=== PATIENT | female | born 1995 | race Caucasian/White ===

== ENCOUNTER 2021-01-25 16:20 | Emergency (ER) | payer OTHER, SELFPAY ==
--- NOTE | 2021-01-25 16:22 | ED.EAR ---
HPI - Ear Problem General Chief complaint: Ear Stated complaint: Ears Time Seen by Provider: 01/25/21 16:29 Source: patient and RN notes reviewed History of Present Illness HPI Narrative: Patient is a 25-year-old female who presents the urgent care with complaints of left earache. Patient states it started 2 days ago and she had been swimming on Saturday. Denies of any drainage, fever, nausea, vomiting, other upper respiratory symptoms. States that she takes a daily allergy medication and used Flonase and ibuprofen. No other acute complaints. No acute distress noted. Patient aware of the plan of care. Some parts of this dictation were generated by voice recognition software and may contain typographical and/or grammatical inaccuracies. Related Data Allergies Allergy/AdvReac Type Severity Reaction Status Date / Time No Known Allergies Allergy Verified 01/25/21 16:35 Review of Systems Review of Systems: Narrative: CONSTITUTIONAL: Denies fever, chills, or sweats. EYES: Denies visual changes, redness, or discharge. ENT: Denies rhinorrhea, congestion, sore throat. Reports of left otalgia CARDIOVASCULAR: Denies chest pain, palpitations, or edema. RESPIRATORY: Denies cough or dyspnea. GASTROINTESTINAL: Denies abdominal pain, nausea, vomiting, or diarrhea. GENITOURINARY: Denies dysuria or hematuria. SKIN: Denies rash or itching. MUSCULOSKELETAL: Denies back pain, joint pain, or myalgia. NEUROLOGIC: Denies headache, numbness, or weakness. All other systems reviewed are negative, except as documented in HPI. [facility] Family History Family History (Updated 03/18/14 @ 07:13 by DOCTOR UNKNOWN) Father Family history of elevated blood lipids Grandparent Family history of lymphoma Family history of heart disease in male family member before age 55 Social History Social History Smoking status: Never smoker Alcohol intake: never Comments At the time of my signature, I reviewed and agree with the nursing past medical, surgical, social, and family history. There is no relevant family history pertinent to the patient complaint. Exam Narrative: Exam Narrative: GENERAL: This is a well-nourished, well-developed patient, in no apparent distress. HEAD: normocephalic, atraumatic. Morbidly obese EYES: PERRL. Sclera clear/white. Vision is grossly intact. EARS: External ears normal, auditory canals clear and without drainage, mild fluid noted behind left TM without otitis, TMs normal without perforation. Hearing grossly intact. NOSE: External nose normal with no obvious nasal discharge, nares without redness, no rhinorrhea. THROAT: Mucous membranes moist, posterior pharynx clear. Mild postnasal drainage NECK: Neck supple, non-tender without lymphadenopathy, masses or thyromegaly. CARDIOVASCULAR: Regular rate and rhythm without murmurs, gallops, or rubs. RESPIRATORY: Clear to auscultation. Breath sounds equal bilaterally. No wheezes, rales, or rhonchi. NEURO: awake, alert, and oriented to person, place and time. There were no obvious focal neurologic abnormalities. EXTREMITIES: No clubbing, cyanosis, or edema. Course Vital Signs Vital signs: Vital Signs Temperature 98.9 F 01/25/21 16:29 Pulse Rate 83 01/25/21 16:29 Respiratory Rate 18 01/25/21 16:29 Blood Pressure 134/95 H 01/25/21 16:29 Pulse Oximetry 100 01/25/21 16:29 Temperature 98.9 F 01/25/21 16:29 Pulse Rate 83 01/25/21 16:29 Respiratory Rate 18 01/25/21 16:29 Blood Pressure 134/95 H 01/25/21 16:29 Pulse Oximetry 100 01/25/21 16:29 Reviewed-patient is informed that they may have pre-hypertension or hypertension based on a blood pressure reading in the department. I recommend the patient call the primary care provider listed on their discharge instructions or a physician of their choice this week to arrange follow-up for further evaluation of possible pre-hypertension or hypertension. Medical Decision Making [facility] Medical decis
[2021-01-25 16:29] VITALS: BP 134/95; PULSE 83; RESP 18; TEMP 37.2; O2SAT 100
== END 2021-01-25 16:53 | disposition home or self-care (01) ==
PROVIDERS: Emergency Provider Nurse Practitioner Family; PCP Family Medicine
DX: H92.02 Otalgia, left ear (principal)
CPT/HCPCS: 99202; 99211; G0463

== ENCOUNTER 2022-03-05 12:25 | Outpatient (CLI) | payer OTHER, SELFPAY ==
--- NOTE | ~2022-03-05 | US_ITS ---
EXAMINATION: US thyroid DATE: 03/05/2022 13:34 INDICATION: Goiter. TECHNIQUE: Multiple ultrasound images of the thyroid were obtained. COMPARISON: None. FINDINGS: The right thyroid lobe measures 4.9 x 1.4 x 2.0 cm. The left thyroid lobe measures 4.3 x 1.1 x 1.8 c m. In the left thyroid lobe, there is a 4 mm nodule. IMPRESSION: 1. Small thyroid nodule, likely not clinically significant. No follow-up is needed. Reviewed, dictated and finalized at location A. IMPRESSION: 1. Small thyroid nodule, likely not clinically significant. No follow-up is nee ded.
== END 2022-03-05 12:26 | disposition home or self-care (01) ==
PROVIDERS: PCP Family Medicine; Visit Provider Internal Medicine Endocrinology, Diabetes & Metabolism
DX: E04.9 Nontoxic goiter, unspecified (principal)
CPT/HCPCS: 76536

== ENCOUNTER 2023-09-13 11:00 | Outpatient (CLI) | payer OTHER, SELFPAY ==
[2023-09-13 11:45] LABS: Basophils Absolute Auto 0.1 K/mm3 (0.0-0.1); Basophils Percent Auto 0.7 % (0.2-1.2); Eosinophils Absolute Auto 0.3 K/mm3 (0-0.3); Eosinophils Percent Auto 3.7 % (0-4.4); Hematocrit 43.8 % (37.0-47.0); Hemoglobin 14.3 g/dL (12.0-15.0); Immature Granulocyte Absolute 0.02 K/mm3 (0.00-0.031); Immature Granulocyte Percent A 0.3 % (0-0.5); Lymphocytes Absolute Auto 2.64 K/mm3 (0.9-3.2); Lymphocytes Percent Auto 39.5 % (18.3-44.2); Mean Corpuscular HGB Conc 32.6 g/dl (32-36); Mean Corpuscular Hemoglobin 28.4 pg (26-34); Mean Corpuscular Volume 87.1 fl (80-100); Mean Platelet Volume 11.8 fl (7.4-10.4); Monocytes Absolute Auto 0.4 K/mm3 (0.1-0.6); Monocytes Percent Auto 5.4 % (2.6-8.5); Neutrophils Absolute Auto 3.4 K/mm3 (1.3-6.7); Neutrophils Percent Auto 50.4 % (45.5-73.1); Platelet Count Result 254 k/mm3 (150-375); Red Blood Count 5.03 M/mm3 (4.2-5.4); Red Cell Distribution Width 12.5 % (11.5-14.5); White Blood Count 6.7 K/mm3 (4.5-10.0)
[2023-09-13 11:56] LABS: Alanine Aminotransferase 28 U/L (6-35); Albumin Level 4.3 g/dL (3.5-5.1); Alkaline Phosphatase 85 U/L (38-126); Anion Gap 8 mmol/L (8-16); Aspartate Amino Transferase 28 U/L (14-36); Bilirubin,Total 0.6 mg/dL (0.2-1.3); Blood Urea Nitrogen 15 mg/dL (7-17); Calcium 9.3 mg/dL (8.4-10.2); Carbon Dioxide 25 mmol/L (22-30); Chloride 105 mmol/L (98-107); Cholesterol 196 mg/dL (0-200); Estimated Glomerular Filt Rate > 60; Glucose 88 mg/dL (65-110); HDL Direct 39 mg/dL; Potassium 4.4 mmol/L (3.4-5.0); Sodium 138 mmol/L (137-145); Triglycerides 77 mg/dL (<150)
[2023-09-13 12:01] LABS: Hemoglobin A1C 5.2 % (<5.7)
[2023-09-13 12:08] LABS: LDL Cholesterol Direct 129 mg/dL
[2023-09-18 17:35] LABS: Testosterone Total 46 ng/dL (2-45)
== END 2023-09-13 11:01 | disposition home or self-care (01) ==
LOC: ANHLAB 11:01
PROVIDERS: PCP Family Medicine; Visit Provider Physician Assistant Medical
DX: E78.5 Hyperlipidemia, unspecified (principal); E28.2 Polycystic ovarian syndrome; E66.01 Morbid (severe) obesity due to excess calories; Z68.39 Body mass index [BMI] 39.0-39.9, adult
CPT/HCPCS: 36415; 80053; 80061; 83036; 83525; 84402; 84403; 84443; 85025

== ENCOUNTER 2024-07-16 17:20 | Emergency (ER) | payer OTHER, SELFPAY | END 2024-07-16 17:40 | disposition left against medical advice (07) | PROVIDERS: PCP Family Medicine | DX: R11.2 Nausea with vomiting, unspecified (principal) | CPT/HCPCS: 99199 ==

== ENCOUNTER 2024-07-16 18:04 | Emergency (ER) | payer OTHER, SELFPAY ==
[2024-07-16 18:05] VITALS: BP 125/79; PULSE 123; RESP 18; TEMP 36.9; O2SAT 100
[2024-07-16] MEDS: SODIUM CHLORIDE 0.9% IV 1,000 ML 999 ML IV CONT (18:18)
[2024-07-16] MEDS: ONDANSETRON INJ 4 MG/2 ML VIAL IV PUSH (18:20)
[2024-07-16 18:42] LABS: Alanine Aminotransferase 36 U/L (14-59); Alkaline Phosphatase 78 U/L (46-116); Anion Gap 15 mmol/L (4-12); Aspartate Amino Transferase 18 U/L (15-37); Bilirubin,Total 0.9 mg/dL (0.00-1.00); Blood Urea Nitrogen 20 mg/dL (7-18); Calcium 9.3 mg/dL (8.5-10.1); Carbon Dioxide 22 mmol/L (21-32); Chloride 104 mmol/L (98-108); Estimated CRCL calculation 86 ml/min; Estimated Glomerular Filt Rate > 60; Glucose 98 mg/dL (70-99); Osmolality Calculated 294 mOsm/kg (285-295); Potassium 3.9 mmol/L (3.5-5.1); Sodium 141 mmol/L (136-145)
--- NOTE | 2024-07-16 19:05 | ED_ITS ---
HPI - Nausea/Vomiting/Diarrhea General Chief complaint: Nausea/Vomiting/Diarrhea Stated complaint: sick symptoms Time Seen by Provider: 07/16/24 18:07 Source: patient Mode of arrival: ambulatory Limitations: no limitations History of Present Illness HPI Narrative: this is a 29-year-old female that presents with some a few days of nausea vomiting diarrhea crampy abdominal pain with no fever chills no bloody no chest pain or shortness of breath. MD elicited complaint: nausea, vomiting and diarrhea Onset (ago): day(s) Description of diarrhea: watery Related Data Allergies Allergy/AdvReac Type Severity Reaction Status Date / Time No Known Allergies Allergy Verified 04/20/24 13:43 Review of Systems 2 Review of Systems: All systems reviewed & are unremarkable except as noted in HPI and below PMFSH Past Medical History Medical History BMI 39.0-39.9,adult BMI greater than 40 Cholecystectomy planned Morbid (severe) obesity due to excess calories Dietary counseling and surveillance (07/11/15) Acute bacterial sinusitis Surgical History Surgical History H/O endoscopy History of wisdom tooth extraction Family History Family History Father Family history of elevated blood lipids Hypertension Grandparent Family history of lymphoma Family history of heart disease in male family member before age 55 Acute myocardial infarction Mother No problems noted. 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[employer] Gender identity (if verbalized by the patient): Female Exam 2 Const: General: healthy appearing and no acute distress Nutritional Appearance: well nourished Orientation/consciousness: patient oriented x3 Limitations: no limitations Eyes: Conjunctivae: conjunctivae normal Neck: Neck: normal visual inspection and no lymphadenopathy Chest: Chest palpation & inspection: normal inspection of the chest Resp: Effort & Inspection: normal respiratory effort Auscultation: clear to auscultation bilaterally Cardio: Rate: regular rate Rhythm: regular rhythm GI: GI Palp: Yes Soft to palpation Auscultation: normal bowel sounds Skin: General skin exam: normal color Rashes: no rashes Wounds: no wounds Neuro: General: patient oriented x3 and moves all extremities Extrem: General: normal to inspection, no clubbing, cyanosis or edema and no pedal edema Course Course Emergency Course: Patient had a CMP that was reviewed with the patient within normal limits received IV fluids and IV Zofran. Vital Signs Vital signs: Vital Signs Temperature 36.9 C 07/16/24 18:05 Pulse Rate 123 H 07/16/24 18:05 Respiratory Rate 18 07/16/24 18:05 Blood Pressure 125/79 07/16/24 18:05 Pulse Oximetry 100 07/16/24 18:05 Oxygen Delivery Room Air 07/16/24 18:05 Temperature 36.9 C 07/16/24 18:05 Pulse Rate 123 H 07/16/24 18:05 Respiratory Rate 18 07/16/24 18:05 Blood Pressure 125/79 07/16/24 18:05 Pulse Oximetry 100 07/16/24 18:05 Oxygen Delivery Room Air 07/16/24 18:05 MDM - Nausea/Vomiting/Diarrhea Lab Data 07/16/24 18:18 Labs: Lab Results 07/16/24 Range/Units 18:18 Sodium 141 (136-145) mmol/L Potassium 3.9 (3.5-5.1) mmol/L Chloride 104 (98-108) mmol/L Carbon Dioxide 22 (21-32) mmol/L Anion Gap 15 H (4-12) mmol/L BUN 20 H (7-18) mg/dL Creatinine 0.85 (0.55-1.02) mg/dL Estim Creat Clear Calc 86 ml/min Estimated GFR > 60 (59 - ) Glucose 98 (70-99) mg/dL Calculated Osmolality 294 (285-295) mOsm/kg Calcium 9.3 (8.5-10.1) mg/dL Total Bilirubin 0.9 (0.00-1.00) mg/dL AST 18 (15-37) U/L ALT 36 (14-59) U/L Alkaline Phosphatase 78 (46-116) U/L Total Protein 8.0 (6.4-8.2) g/dL Albumin 4.0 (3.4-5.0) g/dL Critical Care Time Critical Care Time Critical Care Time: No Discharge Plan Discharge Clinical Impression: Gastroenteritis, Dehydration Patient Disposition: Home, Self-Care Condition: Stable Instructions: Antibiotic Form, Dehydration (ED), Clear Liquid Diet (ED), Gastroenteritis (ED) Additional Instructions: advised to take medication as prescribed and follow with primary within 1 week further evaluation and treatment. Patient Language: Sierra Leonean Prescriptions: New ondansetron 4 mg tablet,disintegrating 4 mg PO Q6H PRN (Reason: nausea and vomiting) Qty: 14 0RF No Action trazodone 50 mg tablet See Rx Instructions .ROUTE .COMPLEX Qty: 90 0RF Dose Instruction: TAKE 1 TABLET BY MOUTH EVERYDAY AT BEDTIME Rx Instructions: TAKE 1 TABLET BY MOUTH EVERYDAY AT BEDTIME Follow-up/Referrals: Ramón Penny MD [Primary Care Provider] - Time of Disposition: 19:08
[2024-07-16 20:30] VITALS: BP 124/78; PULSE 80; RESP 16; O2SAT 100
--- OUTSIDE RECORDS SUMMARY | 2024-07-24 00:18 | XMS_ITS | Encounter Summary ---
Author Organization [facility] Healthcare Address [address] [place] [address] Care Team Providers Care Flooring Professional Name Role Phone Ramón Penny MD Primary Care Provider [phone] Encounter Details Date Type Department Care Team (Late st Contact Info) Description 02/01/2023 Telephone [facility] [address] [place] [address] Violeta Sevilla RN Social History Tobacco Use Types Packs/Day Years Used Date Smoking Tobacco: Never Alcohol Use Standard Drinks/Week Comments No 0 (1 standard drink = 0.6 oz pur e alcohol) AUDIT-C Answer Date Recorded Q1: How often do you have a drink containing alc ohol? Monthly or less 01/25/2023 Q2: How many drinks containi ng alcohol do you have on a typical day when you are drinking? 1 or 2 01/25/2023 Q3: How often do you have si x or more drinks on one occasion? Never 01/25/2023 Comments No Sex and Gender Information Value Date Recorded Sex Assigned at Not on file Legal Sex Female 8:16 AM AS400 DEVELOPER Gender Identity Not on file Sexual Orientation Not on file documented as of this encounter Miscellaneous Notes * Telephone Encounter - Violeta Sevilla RN - 02/01/2023 5:03 PM CDT ML and number given to patient to call to schedule EGD placement of esophgeal motility catheter andBravo pH study. documented in this encounter Plan of Treatment Not on file documented as of this encounter Visit Diagnoses Not on filedocumented in this encounter Care Teams Flooring Professional Relationship Specialty Start Date End Date aRmón Penny MD PCP - General 05/15/11 documented as of this encounter
== END 2024-07-16 20:30 | disposition home or self-care (01) ==
PROVIDERS: Emergency Provider Emergency Medicine; PCP Family Medicine
DX: K52.9 Noninfective gastroenteritis and colitis, unspecified (principal); E86.0 Dehydration
CPT/HCPCS: 36415; 80053; 96361; 96374; 99284; J2405; J7030

== ENCOUNTER 2025-03-01 10:00 | Outpatient (CLI) | payer OTHER, SELFPAY ==
--- NOTE | ~2025-03-01 | XR_ITS ---
LUMBAR SPINE INDICATION: Low back pain TECHNIQUE: 3 views lumbar spine COMPARISON: None FINDINGS: No fracture, subluxation or dislocation. No evidence for spondylolysis or spondylolisthesi s. Vertebral bodies and disk spaces are preserved. IMPRESSION: 1: No significant abnormality of the lumbar spine identified. Reviewed, dictated and finalized at location A.
--- OUTSIDE RECORDS SUMMARY | 2025-03-01 10:10 | XMS_ITS | Encounter Summary ---
Author Organization [facility] Address [address] [place] [address] Care Team Providers Care [facility] Name Role Phone Ramón Penny MD Primary Care Provider Encounter Details Date Type Department Care Team (Latest Contact Info) Description 01/28/2025 Results Follow-Up [facility] [employer] [place] [address] [address] Tonya Murillo MD [address] [place] [phone] TSH, LIPID PANEL, COMPREHENSIVE METABOLIC PANEL, CBC WITH DIFFERENTIAL Social History Tobacco Use Types Packs/Day Years Used Date Smoking Tobacco: Never Smokeless Tobacco: Never Alcohol Use Standard Drinks/Week Comments Yes 0 (1 standard drink = 0.6 oz pur e alcohol) occasionally Comments No Sex and Gender Information Value Date Recorded Sex Assigned at Not on file Legal Sex Female 9:32 AM CDT Gender Identity Not on file Sexual Orientation Not on file documented as of this encounter Miscellaneous Notes * Result Encounter Note - Tonya Murillo MD - 01/28/2025 12:20 PM CDT TSH is normal. Metabolic panel is normal. Lipid panel shows LDL 135, HDL 61, TG 88. Blood counts are normal, except MCHC is low at 31.0. Please discuss labs with your PCP or schedule a new patient appt with our office if you would like to discuss here. documented in this encounter Plan of Treatment Not on file documented as of this encounter Visit Diagnoses Not on filedocumented in this encounter Care Teams [facility] Relationship Specialty Start Date End Date Ramón Penny MD [address] [place] [id number] PCP - General Family Practice 01/04/22 documented as of this encounter
--- OUTSIDE RECORDS SUMMARY | 2025-03-01 10:10 | XMS_ITS | Encounter Summary ---
Author Organization [facility] Address [address] [place] [address] Care Team Providers Care Manager Of Data Name Role Phone Ramón Penny MD Primary Care Provider [phone] Encounter Details Date Type Department Care Team (Late st Contact Info) Description 10/08/2023 Abstract [facility] Operating Room [address] [phone] Javier Moreau MD [address] [address] Social History Tobacco Use Types Packs/Day Years [...] on file documented as of this encounter Plan of Treatment Not on file documented as of this encounter Visit Diagnoses Not on filedocumented in this encounter Care Teams Manager Of Data Relationship Specialty Start Date End Date Ramón Penny MD [address] [place] [phone] PCP - General Family Practice 01/04/22 documented as of this encounter
--- OUTSIDE RECORDS SUMMARY | 2025-03-01 10:10 | XMS_ITS | Clinical Summary ---
Author Organization [address] Address [address] [place] [phone] Care Team Providers Care Resistor Winder Name Role Phone Ramón Penny MD Primary Care Provider + [phone] Allergies No known active allergies Medications spironolactone (ALDACTONE) 100 mg tablet TAKE 2 TABLETS BY MOUTH EVERY DAY FOR 90 DAYS 2 Active traZODone (DESYREL) 50 mg tablet Take 1 tablet (50 mg total) by mouth nightly 3 Active Wegovy 2.4 mg/0.75 mL auto-injector INJECT 2.4 MG (0.75 ML) SUBCUTANEOUSLY WEEKLY 3 Active Zepbound 5 mg/0.5 mL pen injector INJECT 5 MG (0.5 ML) SUBCUTANEOUSLY WEEKLY (WEGOVY OUT OF STOCK) 4 Active Active Problems Problem Noted Date Diagnosed Date Morbid obesity 12/18/2022 BMI 40.0-44.9, adult 06/20/2022 Amenorrhea 12/05/2013 Overview (10/26/2016): ABSENCE OF MENSTRUATION Surgical History Surgery Date Site/Laterality Comments CHOLECYSTECTOMY 04/2013 WISDOM TOOTH EXTRACTION Medical History Medical History Date Comments Adiposity obesity Low back pain 2021 Thyroid disease 03/22/2022 GERD (gastroesophageal reflux disease) Hyperlipidemia Thyroid nodule Polycystic ovary syndrome Family History Medical History Relation Name Comments Drug abuse Father Jordan Hypertension Father Jordan Hypertension; Obesity Father Jordan Other Other No family histo ry of Diabetes mellitus; Heart attack Paternal Grandfather Uche Obesity Paternal Grandfather Uche Miscarriages / Stillbirths Paternal Grandmother Deborah boswell Relation Name Status Comments Father Jordan Other Paternal Grandfather Uche Paternal Grandmother Shawn Social History Tobacco Use Types Packs/Day Years Used Date Smoking Tobacco: Never Smokeless Tobacco: Never Tobacco Cessation:Counseling Given: Not Answered Alcohol Use Standard Drinks/Week Comments No 0 [...] more drinks on one occasion? Never 01/25/2023 Personal Safety Answer Date Recorded Have you ever been in or are you currently in a harmful physical or emotional relationship or is someone making you feel afraid or unsafe? Denies 03/15/2023 Comments No Sex and Gender Information Value Date Recorded Sex Assigned at Not on file Legal Sex Female 8:16 AM CATTLE EXAMINER Gender Identity Not on file Sexual Orientation Not on file Obstetrics History Last Filed Vital Signs Vital Sign Reading Time Taken Comments Blood Pressure 126/81 08/26/2023 9:41 AM CATTLE EXAMINER Pulse 86 08/26/2023 9:41 AM CATTLE EXAMINER Temperature 36.9 C (98.4 F) 08/26/2023 9:41 AM CATTLE EXAMINER Respiratory Rate 17 03/15/2023 2:30 PM CDT Oxygen Saturation 98% 08/26/2023 9:41 AM CATTLE EXAMINER Inhaled Oxygen Concentration - - Weight 111.1 kg (245 lb) 08/26/2023 9:41 AM CATTLE EXAMINER Height 162.6 cm (5' 4) 08/26/2023 9:41 AM CATTLE EXAMINER Body Mass Index 42.05 08/26/2023 9:41 AM CATTLE EXAMINER Plan of Treatment Health Maintenance Due Date Last Done Comments Cervical Cancer Screening 1993 Depression Screening 1993 Hepatitis C Screening 1993 Regular Well Visit/Exam 18-64 2011 DTaP/Tdap/Td Vaccine (8 - Td or Tdap) 01/13/2017 01/13/2007, 07/22/2006, 08/21/2004, Additional history exists Covid-19 Vaccine ( season) 2024 11/14/2020, 10/17/2020 Influenza Vaccine (#1) 2025 Hepatitis B Screening Completed 1993 , 1993, 1993 Varicella Vaccines Completed 01/13/2007, 05/24/1995 HPV Vaccines Completed 07/05/2008, 02/19, 01/02/2008, Additional history exists Pneumococcal vaccine <65 Aged Out No longer eligible based on patient's age to complete this topic Insurance [facility] HMO/PPO Address: [address] [address] [employer]CIAL [employer] [facility] [address] [employer] [place] Advance Directives For more information, please contact: [phone] * Full Code (Latest Code Status on File) Date Activated Date Inactivated Comments 03/15/2023 12:53 PM 03/15/2023 7:01 PM Care Teams Resistor Winder Relationship Specialty Start Date End Date Ramón Penny MD PCP - General 05/15/11
--- OUTSIDE RECORDS SUMMARY | 2025-03-01 10:10 | XMS_ITS | Clinical Summary ---
Author Organization [facility] Address [address] [place] [address] Care Team Providers Care Tax Associate Attorney Name Role Phone Ramón Penny MD Primary Care Provider [phone] Source Comments [facility],non-owned Affiliates and Associated Physician Practices is amultiple site organization consisting of ambulatory clinics and hospital sitesin [place], [place], [place] and [place]. This disclosure is being madepursuant to the Care Everywhere program and may not contain all information available regarding this patient. Last updated 18.[facility] Allergies No known active allergies Medications * Be aware that medications may not be up to date on this document. Alwaysverify current medications with the patient. METFORMIN HCL PO Active SPIRONOLACTONE PO Active OtherIndication s:mylan- control pill Reasons: mylan- control pill Active Social History Tobacco Use Types Packs/Day Years Used Date Smoking Tobacco: Never Smokeless Tobacco: Never Tobacco Cessation:Counseling Given: Yes Comments No Sex and Gender Information Value Date Recorded Sex Assigned at Not on file Legal Sex Female 4:06 PM CDT Gender Identity Not on file Sexual Orientation Not on file Last Filed Vital Signs Vital Sign Reading Time Taken Comments Blood Pressure 112/80 11/26/2018 4:51 PM CDT Pulse 99 11/26/2018 4:51 PM CDT Temperature 37.1 C (98.8 F) 11/26/2018 4:51 PM CDT Respiratory Rate 16 11/26/2018 4:51 PM CDT Oxygen Saturation 96% 11/26/2018 4:51 PM CDT Inhaled Oxygen Concentration - - Weight 115.7 kg (255 lb) 11/26/2018 4:51 PM CDT Height 162.6 cm (5' 4) 11/26/2018 4:51 PM CDT Body Mass Index 43.77 11/26/2018 4:51 PM CDT Plan of Treatment Health Maintenance Due Date Last Done Comments HIV SCREENING 2008 HEPATITIS C SCREENING 04/14/2011 DTAP/TDAP/TD VACCINES (1 - Tdap) 2012 HEPATITIS B VACCINE (1 of 3 - 19+ 3-dose series) 2012 HPV VACCINE (1 - 3-dose SCDM series) 2020 COVID-19 VACCINE (1 - 2023-2 5 season) 2024 DEPRESSION SCREENING 07/22/2024 INFLUENZA VACCINE (#1) 2025 ZOSTER VACCINE (1 of 2) 2043 HIB VACCINE Aged Out No longer eligi ble based on patient's age to complete this topic MENINGOCOCCAL (Group B) VACC INE SHARED DECISION-MAKING Aged Out No longer eligibl e based on patient's age to complete this topic MENINGOCOCCAL GROUPS A/C/Y/W VACCINE Aged Out No longer eligible b ased on patient's age to complete this topic PNEUMOCOCCAL VACCINE Aged Out No long er eligible based on patient's age to complete this topic Insurance [facility] Care Teams Tax Associate Attorney Relationship Specialty Start Date End Date Ramón Penny MD [address] [place] [address] PCP - General Family Medicine 11/10/18
--- OUTSIDE RECORDS SUMMARY | 2025-03-01 10:10 | XMS_ITS | Clinical Summary ---
Author Organization [facility] [place] Address [address] [place] [address] [place] [address] Care Team Providers Care Community Fundraiser Name Role Phone Ramón Penny MD Primary Care Provider [phone] Allergies No known active allergies Medications traZODone (DESYREL) 50 mg tablet Take 50 mg by mouth daily at bedtime. 10/31/2022 Active ondansetron (ZOFRAN ODT) 4 mg Tablet, Rapid Dissolve Take 1 Tablet (4 mg) by mouth every 6 hours as needed for Nausea or Nausea/Emes is. 28 Tablet 11/15/2023 2:12 PM CDT 11/14/2023 Active HYDROcodone-acet aminophen 2.5-108 mg/5 mL SolutionIndicati ons:Morbid obesity with body mass index of 40.0-49.9 (CMS/HCC) Take 15 mL by mouth every 6 hours as needed for Pain, Severe. Max Daily Amount: 60 mL 300 mL 11/15/2023 2:13 PM CDT 11/14/2023 Active Active Problems Problem Noted Date Diagnosed Date Post-operative nausea and vomiting 11/14/2023 General medical exam 11/14/2023 PCOS (polycystic ovarian syndrome) 11/14/2023 Hypercholesteremia 11/14/2023 Morbid obesity with body mass index of 40.0-49.9 04/23/2019 Encounters Date Type Department Care Team Description 02/24/2025 External Device Data ST[facility] ABSTRACTION Provider, Abstract 02/04/2025 External Device Data [facility] ABSTRACTION Provider, Abstract 02/03/2025 External Device Data [facility] ABSTRACTION Provider, Abstract 02/03/2025 External Device Data ST[facility] ABSTRACTION Provider, Abstract 02/03/2025 External Device Data [facility] ABSTRACTION Provider, Abstract 01/28/2025 Results Follow-Up [facility] at [address] [phone] Tonya Murillo MD TSH, LIPID PANEL, COMPREHENSIVE METABOLIC PANEL, CBC WITH DIFFERENTIAL 01/27/2025 7:40 AM CDT Office Visit [facility] at [facility] [address] [place] [phone] Screening for condition (Primary Dx) from Last 3 Months Immunizations Immunization Administration Dates Next Due (ADACEL/BOOSTRIX)(10 YR UP) TDAP VACCINE, 0.5ML, IM 07/22/2006 (GARDASIL)(9-45 YRS) HUMAN P APILLOMAVIRUS VACCINE, TYPES 6, 11, 16, 18, QUADRIVALENT (4VHPV), 3 DOSE, IM 07/22/2006 Family History Medical History Relation Name Comments No Known Problems Father No Known Problems Half-Brother Unknown Maternal Grandfather No Known Problems Maternal Grandmother No Known Problems Mother Heart Attack Paternal Grandfather Relation Name Status Comments Father Alive Half-Brother Alive Maternal Grandfather Maternal Grandmother Alive Mother Alive Paternal Grandfather Paternal Grandmother Social History Tobacco Use Types Packs/Day Years Used Date Smoking Tobacco: Never Smokeless Tobacco: Never Tobacco Cessation:Counseling Given: Not Answered Alcohol Use Standard Drinks/Week Comments Yes 0 (1 standard drink = 0.6 oz pur e alcohol) occasionally Comments No Sex and Gender Information Value Date Recorded Sex Assigned at Not on file Legal Sex Female 9:32 AM CDT Gender Identity Not on file Sexual Orientation Not on file Last Filed Vital Signs Vital Sign Reading Time Taken Comments Blood Pressure 118/68 01/27/2025 7:32 AM CDT Pulse 58 11/15/2023 12:09 PM CDT Temperature 37 C (98.6 F) 11/15/2023 12:09 PM CDT Respiratory Rate 20 11/15/2023 12:09 PM CDT Oxygen Saturation 100% 11/15/2023 12:09 PM CDT Inhaled Oxygen Concentration - - Weight 78.5 kg (173 lb) 01/27/2025 7:32 AM CDT Height 162.6 cm (5' 4) 01/27/2025 7:32 AM CDT Body Mass Index 29.7 01/27/2025 7:32 AM CDT Plan of Treatment Health Maintenance Due Date Last Done Comments HPV VACCINES (2 - 2-dose series) 01/19/2007 07/22/19 07 HEPATITIS B VACCINES (1 of 3 - 19+ 3-dose series) 2012 HPV/Cotest (21-29) 2014 DTAP/TDAP/TD VACCINES (2 - T d or Tdap) 07/22/2016 07/22/2006 CERVICAL CANCER SCREENING 2023 HPV/Cotest (30-65) 2023 PAP SMEAR 2023 09/19/2018 (Prev iously completed) INFLUENZA VACCINE (#1) 2025 Medical Devices Implanted Type Area Senior It Recruiter Device Identifier Shelf Expiration Date Model / Serial / Lot Seamguard Endogia 60 Blk [id number] - [id number] Implanted:Qt y: 1 on 11/14/2023 by Javier Moreau MD at [facility] Biological N/A: Stomach [employer] [id number] 04/02/2026 12BSGTRI 60B / / [id number] Seamguard Endogia 60 Blk [id number] - [id number] Implanted:Qt y: 1 on 11/14/2023 by Javier Moreau MD at [facility] Biological N/A: Stomach [employer] [id number] 04/02/2026 12BSGTRI 60B / / [id number] Seamguard Endogia 60 Prpl [id number] - [id number] Implanted:Qt y: 1 on 11/14/2023 by Javier Moreau MD at [facility] Biological N/A: Stomach [employer] [id number] 05/18/2026 12BSGTRI 60P / / [id number] Seamguard Endogia 60 Prpl [id number] - [id number] Implanted:Qt y: 1 on 11/14/2023 by Javier Moreau MD at [facility] Biological N/A: Stomach [employer] [id number] 05/18/2026 12BSGTRI 60P / / [id number] Procedures Procedure Name Priority Date/Time Associated Diagnosis Comments CBC WITH DIFFERENTIAL Routine 01/27/2025 7:20 AM CDT Screening for condition COMPREHENSIVE METABOLIC PANEL Routine 01/27/2025 7:20 AM CDT Screening for condition LIPID PANEL Routine 01/27/2025 7:20 AM CDT Screening for condition TSH Routine 01/27/2025 7:20 AM CDT Screening for condition from Last 3 Months Results * (ABNORMAL) CBC WITH DIFFERENTIAL (01/27/2025 7:20 AM CDT) WBC 5.6 3.8 - 10.8 Thousand/ uL [facility] RBC 4.50 3.80 - 5.10 Million/u L [facility] HEMOGLOBIN 13.5 11.7 - 15.5 g/dL [facility] HEMATOCRIT 43.6 35.0 - 45.0 % [facility] MCV 96.9 80.0 - 100.0 fL [facility] MCH 30.0 27.0 - 33.0 pg [facility] MCHC 31.0(L) 32.0 - 36.0 g/dL [facility] Comment: For adults, a slight decrease in the calculated MCHC value (in the range of 30 to 32 g/dL) is most likely not clinically significant; however, it should be interpreted with caution in correlation with other red cell parameters and the patient's clinical condition. RDW 12.6 11.0 - 15.0 % [facility] PLATELETS 244 140 - 400 Thousand/ uL [facility] MPV 12.2 7.5 - 12.5 fL [facility] NEUTROPHIL ABSOLUTE 2,582 1,500 - 7,800 cells/uL [facility] LYMPHOCYTE ABSOLUTE 2,509 850 - 3,900 cells/uL [facility] MONOCYTE ABSOLUTE 319 200 - 950 cells/uL [facility] EOSINOPHIL ABSOLUTE 151 15 - 500 cells/uL [facility] BASOPHILS ABSOLUTE 39 0 - 200 cells/uL [facility] NEUTROPHIL 46.1 % [facility] LYMPHOCYTES 44.8 % [facility] oPol MONOCYTE 5.7 % [facility] EOSINOPHILS 2.7 % [facility] BASOPHILS 0.7 % [facility] Comment: Test Performed at: [place] [address] [place] [address] [facility] Blood 01/27/2025 7:20 AM CDT 01/28/2025 3:41 AM CDT Result [facility] Tonya Murillo MD HEMATOLOGY ORDERABLES Final R esult Performing Organization Address City/[facility] Code Phone Number [facility] [phone] [place] [address] [place] [address] * TSH (01/27/2025 7:20 AM CDT) TSH 2.24 mIU/L [facility] Comment: Reference Range > or = 20 Years 0.40-4.50 Ranges First trimester 0.26-2.66 Second trimester 0.55-2.73 Third trimester 0.43-2.91 Test Performed at: [place] [address] [place] [address] [facility] Blood 01/27/2025 7:20 AM CDT 01/28/2025 3:41 AM CDT Tonya Murillo MD CHEMISTRY ORDERABLES Final Re sult Performing Organization Address City/[facility] Code Phone Number [facility] [phone] [place] [address] [place] [address] * (ABNORMAL) LIPID PANEL (01/27/2025 7:20 AM CDT) CHOLESTEROL 215(H) <200 mg/dL [facility] HDL 61 > OR = 50 mg/dL [facility] TRIGLYCERIDE 88 <150 mg/dL [facility] LDL CALCULATED 135(H) mg/dL (calc) [facility] Comment: Reference range: <100 Desirable range <100 mg/dL for primary prevention; <70 mg/dL for patients with CHD or diabetic patients with > or = 2 CHD risk factors. LDL-C is now calculated using the Rafael calculation, which is a validated novel method providing better accuracy than the Friedewald equation in the estimation of LDL-C. Miky KENNY et al. ELIANA. 2013;310(19): 6980-8602 (http://education.[employer]/faq/XXQ583) CHOL/HDL RATIO 3.5 <5.0 (calc) [facility] NON-HDL CHOLESTEROL 154(H) <130 mg/dL (calc) [facility] Comment: For patients with diabetes plus 1 major ASCVD risk factor, treating to a non-HDL-C goal of <100 mg/dL (LDL-C of <70 mg/dL) is considered a therapeutic option. Test Performed at: [place] [address] [place] [address] [facility] Blood 01/27/2025 7:20 AM CDT 01/28/2025 3:41 AM CDT us Tonya Murillo MD CHEMISTRY ORDERABLES Final Re sult [facility] [phone] [facility] [place] [address] [place] [address] * COMPREHENSIVE METABOLIC PANEL (01/27/2025 7:20 AM CDT) GLUCOSE 80 65 - 99 mg/dL [facility] Comment: Fasting reference interval BUN 16 7 - 25 mg/dL [facility] CREATININE 0.88 0.50 - 0.97 mg/dL [facility] GFR 90 > OR = 60 mL/min/1. 73m2 [facility] BUN/CREAT RATIO SEE NOTE: 6 - 22 (calc) [facility] Comment: Not Reported: BUN and Creatinine are within reference range. SODIUM 139 135 - 146 mmol/L [facility] POTASSIUM 4.1 3.5 - 5.3 mmol/L [facility] CHLORIDE 102 98 - 110 mmol/L [facility] CO2 26 20 - 32 mmol/L [facility] CALCIUM 9.5 8.6 - 10.2 mg/dL [facility] TOTAL PROTEIN 7.2 6.1 - 8.1 g/dL [facility]rn ALBUMIN 4.2 3.6 - 5.1 g/dL [facility] GLOBULIN 3.0 1.9 - 3.7 g/dL (calc) [facility] ALBUMIN/GLOBULIN RATIO 1.4 1.0 - 2.5 (calc) [facility] BILIRUBIN TOTAL 0.5 0.2 - 1.2 mg/dL [facility] ALKALINE PHOSPHATASE 66 31 - 125 U/L [facility] AST 15 10 - 30 U/L [facility] ALT 20 6 - 29 U/L [facility] Comment: Test Performed at: [place] [address] [place] [address] [facility] Blood 01/27/2025 7:20 AM CDT 01/28/2025 3:41 AM CDT us Tonya Murillo MD CHEMISTRY ORDERABLES Final Re sult [facility] [phone] [place] [address] [place] [address] from Last 3 Months Insurance OPEN ACCESS RX [employer] (INTERNAL) [employer] * Guarantor: [employer]) Account Type Relation to Patient Date of Phone Billing Address Corporate Employer ATTN: ABRIL RUBIO [address] [address] [employer] OPEN ACCESS * Guarantor: [employer] Account Type Relation to Patient Date of Phone Billing Address Corporate Employer ATTN: ABRIL RUBIO [address] [address] Advance Directives For more information, please contact: [phone] * Full Code (Latest Code Status on File) Date Activated Date Inactivated Comments 11/14/2023 6:58 AM 11/15/2023 4:54 PM * Full Code Date Activated Date Inactivated Comments 11/14/2023 5:40 AM 11/14/2023 6:58 AM Care Teams Community Fundraiser Relationship Specialty Start Date End Date Ramón Penny MD [address] [place] [address] PCP - General Family Practice 01/04/22
== END 2025-03-01 10:01 | disposition home or self-care (01) ==
PROVIDERS: PCP Family Medicine; Visit Provider Physician Assistant Medical
DX: M54.50 Low back pain, unspecified (principal)
CPT/HCPCS: 72100

== ENCOUNTER 2025-04-17 08:51 | Emergency (ER) | payer OTHER, SELFPAY ==
--- OUTSIDE RECORDS SUMMARY | 2025-04-17 08:53 | XMS_ITS | Clinical Summary ---
Author Organization [facility] Address [address] [place] [address] Care Team Providers Care Room Service Associate Name Role Phone Ramón Penny MD Primary Care Provider [phone] Source Comments [facility],non-owned Affiliates and Associated Physician Practices is amultiple site organization consisting of ambulatory clinics and hospital sitesin [place], [place], [place] and [place]. This disclosure is being madepursuant to the Care Everywhere program and may not contain all information available regarding this patient. Last updated 18.[facility] Allergies No known active allergies Medications * [...] VACCINE (1 - 3-dose SCDM series) 2020 DEPRESSION SCREENING 07/22/2024 COVID-19 VACCINE (1 - 2023-2 5 season) 2025 INFLUENZA VACCINE (#1) 2025 ZOSTER VACCINE (1 [...] patient's age to complete this topic Insurance [employer] Care Teams Room Service Associate Relationship Specialty Start Date End Date Ramón Penny MD [address] [place] [address] PCP - General Family Medicine 11/10/18
--- OUTSIDE RECORDS SUMMARY | 2025-04-17 08:53 | XMS_ITS | Data Portability ---
Author Organization [facility], Main Office Address [address] [place] [address] Assessment No assessment recorded. Plan of Treatment Reminders Order Date Submit Date Provider Last Modified By Organization Details Last Modified Time Details Appointments None record ed. Lab None record ed. Referral None record ed. Procedures None record ed. Surgeries None record ed. Imaging None record ed. Medication Orders None record ed. Patient TargetsNo targets recorded. Patient InstructionsNo instructions recorded. Reason for Referral None Reported. Results Created Date Observation Date Name Description Value Unit Range Abnormal Flag Note LastModifiedBy Organization Detail LastModifiedTime 03/05/20 22 03/13/2022 HEMOG LOBIN A1C hemoglobin A1C 4.9 %_of_ total _HGB <5.7 normal For the purpo se of lawrence lewis for the prese nce of diabe karina: <5.7% Consi stent with the absen ce of diabe karina 5.7-6 .4% Consi stent with incre ased risk for diabe karina (pred iabet es) > or =6.5% Consi stent with diabe karina This assay resul t is consi stent with a decre ased risk of diabe karina. Curre ntly, no conse nsus exist s ramy huynh use of hemog lobin A1c for diagn osis of diabe karina in child nguyễn. Accor ding to Ameri can Diabe karina Assoc iatio n (ADA) guide lines , hemog lobin A1c <7.0% repre sents optim al contr ol in non-p regna nt diabe tic patie nts. Diffe rent metri cs may apply to speci fic patie nt popul ation s. [facility] in Diabe karina(A DA). Not Available [facility], [address], 03/13/2022 09:14:28 03/05/2003/13/2022 TSH+F REE T4 TSH 2.31 mIU/L normal Refer ence Range > or = 20 Years 0.40- 4.50 Pregn logan Range s First trime ster 0.26- 2.66 Secon d trime ster 0.55- 2.73 Third trime ster 0.43- 2.91 Not Available [address], [address], 03/13/2022 09:14:27 03/05/2003/13/2022 TSH+F REE T4 T4, free 1.1 NG/dL 0.8-1. 8 normal Not Available [address], [address], 03/13/2022 09:14:27 03/05/2003/13/2022 T3, FREE T3, free 3.2 pg/mL 2.3-4. 2 normal Not Available [address], [address], 03/13/2022 09:14:26 03/05/2003/13/2022 VITAM IN B12/F OLATE , SERUM PANEL vitamin B12 588 pg/mL 200-11 00 normal Not Available [address], [address], 03/13/2022 09:14:25 03/05/2003/13/2022 VITAM IN B12/F OLATE , SERUM PANEL folate, serum 19.7 NG/mL normal Refer ence Range Low: <3.4 Borde rline : 3.4-5 .4 Kate l: >5.4 Not Available [address], [address], 03/13/2022 09:14:25 03/05/2003/13/2022 INSUL IN insulin 56.8 uIU/m L high Refer ence Range < or = 19.6 Risk: Optim al < or = 19.6 Moder ate NA High >19.6 Adult cardi ovasc ular event risk categ ory cut point s (opti mal, moder ate, high) are based on [facility] popul ation data from 07/10 11. This insul in assay shows stron g cross -reac tivit y for some insul in analo gs (lisp ro, aspar t, and glarg ine) and much lower cross -reac tivit y with other s (dete merari, gluli sine) . Not Available [facility] [address], [address], 03/13/2022 09:14:24 03/05/2003/13/2022 DHEA SULFA TE DHEA sulfate 238 mcg/d L 14-349 normal Not Available [facility] [address], [address], 03/13/2022 09:14:23 03/05/2003/13/2022 THYRO ID PEROX IDASE ANTIB ODIES thyroid peroxidase antibodies 1 IU/mL <9 normal Not Available [facility] [address], [address], 03/13/2022 09:14:22 03/05/20 22 03/13/2022 CBC (H/H, RBC, INDIC ES, WBC, PLT) white blood cell count 7.2 thous and/u L 3.8-10 .8 normal Not Available [facility] [address], [address], 03/13/2022 09:14:21 03/05/2003/13/2022 CBC (H/H, RBC, INDIC ES, WBC, PLT) red blood cell count 4.71 real on/uL 3.80-5 .10 normal Not Available [facility] [address], [address], 03/13/2022 09:14:21 03/05/20 22 03/13/2022 CBC (H/H, RBC, INDIC ES, WBC, PLT) hemoglobin 13.6 g/dL 11.7-1 5.5 normal Not Available [address], [address], 03/13/2022 09:14:21 03/05/2003/13/2022 CBC (H/H, RBC, INDIC ES, WBC, PLT) hematocrit 40.8 % 35.0-4 5.0 normal Not Available [address], [address], 03/13/2022 09:14:21 03/05/2003/13/2022 CBC (H/H, RBC, INDIC ES, WBC, PLT) MCV 86.6 fL 80.0-1 00.0 normal Not Available [address], [address], 03/13/2022 09:14:21 03/05/2003/13/2022 CBC (H/H, RBC, INDIC ES, WBC, PLT) MCH 28.9 pg 27.0-3 3.0 normal Not Available [address], [address], 03/13/2022 09:14:21 03/05/2003/13/2022 CBC (H/H, RBC, INDIC ES, WBC, PLT) MCHC 33.3 g/dL 32.0-3 6.0 normal Not Available [address], [address], 03/13/2022 09:14:21 03/05/2003/13/2022 CBC (H/H, RBC, INDIC ES, WBC, PLT) RDW 13.4 % 11.0-1 5.0 normal Not Available [address], [address], 03/13/2022 09:14:21 03/05/20 22 03/13/2022 CBC (H/H, RBC, INDIC ES, WBC, PLT) platelet count 327 thous and/u L 140-40 0 normal Not Available [address], [address], 03/13/2022 09:14:21 03/05/20 22 03/13/2022 CBC (H/H, RBC, INDIC ES, WBC, PLT) MPV 12.1 fL 7.5-12 .5 normal Not Available [address], [address], 03/13/2022 09:14:21 03/05/20 22 03/13/2022 COMPR EHENS SHAHEED METAB OLIC PANEL glucose 96 mg/dL 65-99 normal Fasti ng refer ence inter new Not Available [address], [address], 03/13/2022 09:14:20 03/05/20 22 03/13/2022 COMPR EHENS SHAHEED METAB OLIC PANEL urea nitrogen (BUN) 14 mg/dL 7-25 normal Not Available [address], [address], 03/13/2022 09:14:20 03/05/20 22 03/13/2022 COMPR EHENS SHAHEED METAB OLIC PANEL creatinine 0.88 mg/dL 0.50-0 .96 normal Not Available [address], [address], 03/13/2022 09:14:20 03/05/20 22 03/13/2022 COMPR EHENS SHAHEED METAB OLIC PANEL eGFR 92 mL/mi n/1.7 3m2 > or = 60 normal The eGFR is based on the CKD-E PI 2020 equat ion. To calcu late the new eGFR from a previ ous Creat inine or Cysta kamar C resul t, go to https ://ww w.kid kaleb.o rg/pr ofess ional s/ kdoqi /gfr% 5Fcal culat or Not Available [address], [address], 03/13/2022 09:14:20 03/05/20 22 03/13/2022 COMPR EHENS SHAHEED METAB OLIC PANEL BUN/creatini ne ratio not applic able (calc ) 6-22 Not Available [address], [address], 03/13/2022 09:14:20 03/05/20 22 03/13/2022 COMPR EHENS SHAHEED METAB OLIC PANEL sodium 139 mmol/ L 135-14 6 normal Not Available [address], [address], 03/13/2022 09:14:20 03/05/20 22 03/13/2022 COMPR EHENS SHAHEED METAB OLIC PANEL potassium 4.5 mmol/ L 3.5-5. 3 normal Not Available [address], [address], 03/13/2022 09:14:20 03/05/20 22 03/13/2022 COMPR EHENS SHAHEED METAB OLIC PANEL chloride 106 mmol/ L 98-110 normal Not Available [address], [address], 03/13/2022 09:14:20 03/05/20 22 03/13/2022 COMPR EHENS SHAHEED METAB OLIC PANEL carbon dioxide 23 mmol/ L 20-32 normal Not Available [address], [address], 03/13/2022 09:14:20 03/05/20 22 03/13/2022 COMPR EHENS SHAHEED METAB OLIC PANEL calcium 9.0 mg/dL 8.6-10 .2 normal Not Available [address], [address], 03/13/2022 09:14:20 03/05/20 22 03/13/2022 COMPR EHENS SHAHEED METAB OLIC PANEL protein, total 7.0 g/dL 6.1-8. 1 normal Not Available [address], [address], 03/13/2022 09:14:20 03/05/20 22 03/13/2022 COMPR EHENS SHAHEED METAB OLIC PANEL albumin 3.9 g/dL 3.6-5. 1 normal Not Available [address], [address], 03/13/2022 09:14:20 03/05/20 22 03/13/2022 COMPR EHENS SHAHEED METAB OLIC PANEL globulin 3.1 g/dL_ (calc ) 1.9-3. 7 normal Not Available [address], [address], 03/13/2022 09:14:20 03/05/20 22 03/13/2022 COMPR EHENS SHAHEED METAB OLIC PANEL albumin/glob ulin ratio 1.3 (calc ) 1.0-2. 5 normal Not Available [address], [address], 03/13/2022 09:14:20 03/05/20 22 03/13/2022 COMPR EHENS SHAHEED METAB OLIC PANEL bilirubin, total 0.2 mg/dL 0.2-1. 2 normal Not Available [address], [address], 03/13/2022 09:14:20 03/05/20 22 03/13/2022 COMPR EHENS SHAHEED METAB OLIC PANEL alkaline phosphatase 78 U/L 31-125 normal Not Available [address], [address], 03/13/2022 09:14:20 08/1503/13/2022 COMPR EHENS SHAHEED METAB OLIC PANEL AST 17 U/L 10-30 normal Not Available [address], [address], 03/13/2022 09:14:20 03/05/2003/13/2022 COMPR EHENS SHAHEED METAB OLIC PANEL ALT 32 U/L 6-29 high Not Available [address], [address], 03/13/2022 09:14:20 03/05/2003/13/2022 TESTO STERO NE, FREE, BIOAV AILAB LE AND TOTAL , MS albumin 4.0 g/dL 3.6-5. 1 Not Available [address], [address], 03/13/2022 09:14:19 03/05/2003/13/2022 TESTO STERO NE, FREE, BIOAV AILAB LE AND TOTAL , MS sex hormone binding globulin 26.7 nmol/ L 17-124 Not Available [address], [address], 03/13/2022 09:14:19 03/05/2003/13/2022 TESTO STERO NE, FREE, BIOAV AILAB LE AND TOTAL , MS testosterone , free 2.8 pg/mL 0.2-5. 0 Not Available [address], [address], 03/13/2022 09:14:19 03/05/2003/13/2022 TESTO STERO NE, FREE, BIOAV AILAB LE AND TOTAL , MS testosterone ,bioavailabl e 5.1 NG/dL 0.5-8. 5 Not Available [address], [address], 03/13/2022 09:14:19 03/05/2003/13/2022 TESTO STERO NE, FREE, BIOAV AILAB LE AND TOTAL , MS testosterone , total, MS 20 NG/dL 2-45 For addit ional infor lucy ly e refer to https ://ed ucati on.qu lindy charlesSynergEyess. com/f aq/FA Q165 (This link is being provi ded for infor antelmo nal/e ducat ional purpo ses only. ) (Note ) This test was devel oped and its cornelio tical perfo rmanc e demetrius cteri stics have been deter mined by [employer]. It has not been clear ed or appro laureano by the FDA. This assay has been valid ated pursu ant to the CLIA regul ation s and is used for clini alycia purpo ses. ANGIE torres [address] [facility] [address] [facility] [address] [phone] Sushil ball MD Not Available [facility] [address] [address] [place], [address], 03/13/2022 09:14:19 10/13/1910/15/2022 TESTO STERO NE, FREE, BIOAV AILAB LE AND TOTAL , MS albumin 4.4 g/dL 3.6-5. 1 Not Available [facility] [address] [address] [place], [address], 10/15/2022 18:23:55 10/13/1910/15/2022 TESTO STERO NE, FREE, BIOAV AILAB LE AND TOTAL , MS sex hormone binding globulin 32.1 nmol/ L 17-124 Not Available [facility] [address] [address] [place], [address], 10/15/2022 18:23:55 10/13/1910/15/2022 TESTO STERO NE, FREE, BIOAV AILAB LE AND TOTAL , MS testosterone , free 4.0 pg/mL 0.2-5. 0 Not Available [facility] [address] [address] [place], [address], 10/15/2022 18:23:55 10/13/19 23 10/15/2022 TESTO STERO NE, FREE, BIOAV AILAB LE AND TOTAL , MS testosterone ,bioavailabl e 8.0 NG/dL 0.5-8. 5 Not Available [address], [address], 10/15/2022 18:23:55 10/13/19 23 10/15/2022 TESTO STERO NE, FREE, BIOAV AILAB LE AND TOTAL , MS testosterone , total, MS 33 NG/dL 2-45 For addit ional infor antelmo nlucy e refer to https ://ed ucati on.qu Cohealo. [employer]/f aq/FA Q165 (This link is being provi ded for infor matio nal/e ducat ional purpo ses only. ) (Note ) This test was devel oped and its cornelio tical perfo rmanc e demetrius cteri stics have been deter mined by [employer]. It has not been clear ed or appro laureano by the FDA. This assay has been valid ated pursu ant to the CLIA regul ation s and is used for clini alycia purpo ses. F med fusio n [address] [facility] [address] [facility] [address] [phone] Sushil ball MD Not Available [address], [address], 10/15/2022 18:23:55 10/13/19 23 10/15/2022 COMPR EHENS SHAHEED METAB OLIC PANEL glucose 77 mg/dL 65-99 normal Fasti ng refer ence inter new Not Available [address], [address], 10/15/2022 18:23:56 10/13/19 23 10/15/2022 COMPR EHENS SHAHEED METAB OLIC PANEL urea nitrogen (BUN) 18 mg/dL 7-25 normal Not Available [address], [address], 10/15/2022 18:23:56 10/13/19 23 10/15/2022 COMPR EHENS SHAHEED METAB OLIC PANEL creatinine 0.90 mg/dL 0.50-0 .96 normal Not Available [address], [address], 10/15/2022 18:23:56 10/13/19 23 10/15/2022 COMPR EHENS SHAHEED METAB OLIC PANEL eGFR 89 mL/mi n/1.7 3m2 > or = 60 normal The eGFR is based on the CKD-E PI 2020 equat ion. To calcu late the new eGFR from a previ ous Creat inine or Cysta tin C resul t, go to https ://bibi manuel.noreen duque/jonas alanis s/ kdoqi /gfr% 5Fcal culat or Not Available [address], [address], 10/15/2022 18:23:56 10/13/19 23 10/15/2022 COMPR EHENS SHAHEED METAB OLIC PANEL BUN/creatini ne ratio NOT APPLIC ABLE (calc ) 6-22 Not Available [address], [address], 10/15/2022 18:23:56 10/13/19 23 10/15/2022 COMPR EHENS SHAHEED METAB OLIC PANEL sodium 136 mmol/ L 135-14 6 normal Not Available [address], [address], 10/15/2022 18:23:56 10/13/19 23 10/15/2022 COMPR EHENS SHAHEED METAB OLIC PANEL potassium 4.4 mmol/ L 3.5-5. 3 normal Not Available [address], [address], 10/15/2022 18:23:56 10/13/19 23 10/15/2022 COMPR EHENS SHAHEED METAB OLIC PANEL chloride 102 mmol/ L 98-110 normal Not Available [address], [address], 10/15/2022 18:23:56 10/13/19 23 10/15/2022 COMPR EHENS SHAHEED METAB OLIC PANEL carbon dioxide 23 mmol/ L 20-32 normal Not Available [address], [address], 10/15/2022 18:23:56 10/13/19 23 10/15/2022 COMPR EHENS SHAHEED METAB OLIC PANEL calcium 9.7 mg/dL 8.6-10 .2 normal Not Available [address], [address], 10/15/2022 18:23:56 10/13/19 23 10/15/2022 COMPR EHENS SHAHEED METAB OLIC PANEL protein, total 7.6 g/dL 6.1-8. 1 normal Not Available [address], [address], 10/15/2022 18:23:56 10/13/19 23 10/15/2022 COMPR EHENS SHAHEED METAB OLIC PANEL albumin 4.4 g/dL 3.6-5. 1 normal Not Available [address], [address], 10/15/2022 18:23:56 10/13/19 23 10/15/2022 COMPR EHENS SHAHEED METAB OLIC PANEL globulin 3.2 g/dL_ (calc ) 1.9-3. 7 normal Not Available [address], [address], 10/15/2022 18:23:56 10/13/19 23 10/15/2022 COMPR EHENS SHAHEED METAB OLIC PANEL albumin/glob ulin ratio 1.4 (calc ) 1.0-2. 5 normal Not Available [address] [place], [address], 10/15/2022 18:23:56 10/13/19 23 10/15/2022 COMPR EHENS SHAHEED METAB OLIC PANEL bilirubin, total 0.5 mg/dL 0.2-1. 2 normal Not Available [address], [address], 10/15/2022 18:23:56 10/13/19 23 10/15/2022 COMPR EHENS SHAHEED METAB OLIC PANEL alkaline phosphatase 78 U/L 31-125 normal Not Available [address], [address], 10/15/2022 18:23:56 10/13/19 23 10/15/2022 COMPR EHENS SHAHEED METAB OLIC PANEL AST 20 U/L 10-30 normal Not Available [address], [address], 10/15/2022 18:23:56 10/13/19 23 10/15/2022 COMPR EHENS SHAHEED METAB OLIC PANEL ALT 26 U/L 6-29 normal Not Available [address], [address], 10/15/2022 18:23:56 10/13/19 23 10/15/2022 DHEA SULFA TE DHEA sulfate 191 mcg/d L 14-349 normal Not Available [address], [address], 10/15/2022 18:23:57 10/13/19 23 10/15/2022 INSUL IN insulin 14.0 uIU/m L normal Refer ence Range < or = 18.4 Risk: Optim al < or = 18.4 Moder ate NA High >18.4 Adult cardi ovasc ular event risk categ ory cut point s (opti mal, moder ate, high) are based on Insul in Refer ence Inter new studi es perfo rmed at [facility] Diagn ostic s in 2021. Not Available [facility] [address] [address], [place], [address], 10/15/2022 18:23:58 03/05/20 22 03/05/2022 US, thyro id No observ ation record ed. [id number] [facility] [address], [place], [address], 09/20/2022 01:08:12 Result Notes None recorded. Problems Name Problem SNOMED Code Status Onset Date Resolution Date Notes Provider Name and Address Organization Details Recorded Time Polycystic ovary syndrome 048849024 Active 2021 Not Available [facility] 01:07:07 Morbid obesity 274855928 Active 2021 Not Available [facility] 3 01:07:08 Goiter 9131984 Active 2021 Not Available [facility] 3 01:07:08 Fatigue 39428829 Active 2021 Not Available [facility] 01:07:08 Weight gain 8314494 Active 2021 Not Available [facility] 3 01:07:08 Obesity 127959262 Active 2022 Neleam Pettit MD [address] [place] [address], [place], [address] , [facility] [employer] 3 15:04:28 Problem Notes None recorded. Procedures Surgical History Date Name Laterality Status Provider Name and Address Organization Details Recorded Time [facility] completed Not Available [facility] 09/20/2022 01:06:32 cholecystectomy completed Not Available [facility] 09/20/2022 01:06:32 Imaging Results None recorded. Procedure Notes None recorded. Medical Equipment None Reported. Medications Name Sig Start Date Stop Date Status Note LastModified by Organization Details LastModified Time famotidine 10 mg tablet Take 2 tablets every day by oral route. 03/01 completed Not Available Not Available Not Available trazodone 50 mg tablet TAKE 1 TABLET BY MOUTH ONCE DAILY AT BEDTIME 03/01 completed Not Available Not Available Not Available spironolact one 100 mg tablet TAKE 2 TABLETS BY MOUTH EVERY DAY FOR 90 DAYS 2022 active Not Available Not Available Not Avai lable dexamethaso ne 1 mg tablet take dexa tablet at 10 pm night before 8 am cortisol 03/01 completed Not Available Not Available Not Available Saxenda 3 mg/0.5 mL (18 mg/3 mL) subcutaneou s pen injector Inject by subcutane ous route. 02/09 completed Not Available Not Available Not Available Wegovy 2.4 mg/0.75 mL subcutaneou s pen injector INJECT 2.4 MG (0.75 ML) SUBCUTANE OUSLY WEEKLY active Not Available Not Available No t Available Wegovy 1.7 mg/0.75 mL subcutaneou s pen injector 1.7 MG (0.75 ML) SUBCUTANE OUSLY WEEKLY active Not Available Not Available No t Available Wegovy 1 mg/0.5 mL subcutaneou s pen injector INJECT 1 MG EVERY WEEK BY SUBCUTANE OUS ROUTE AT DINNER FOR 90 DAYS. 03/01 completed Not Available Not Available Not Available Wegovy 0.25 mg/0.5 mL subcutaneou s pen injector INJECT 0.25 MG EVERY WEEK BY SUBCUTANE OUS ROUTE AT DINNER FOR 30 DAYS. 03/01 completed Not Available Not Available Not Available Wegovy 0.5 mg/0.5 mL subcutaneou s pen injector INJECT 0.5MG UNDER THE SKIN ONCE WEEKLY AT DINNER 03/01 completed Not Available Not Available Not Available Mounjaro 5 mg/0.5 mL subcutaneou s pen injector Inject by subcutane ous route for 28 days. 10/09 completed Not Available Not Available Not Available Mounjaro 2.5 mg/0.5 mL subcutaneou s pen injector INJECT 2.5 MG EVERY WEEK UNDER THE SKIN AT DINNER FOR 30 DAYS. 10/09 completed Not Available Not Available Not Available Vitals Date Recorded Body mass index (BMI) Body height Oxygen saturation Oxygen saturation in Arterial blood by Pulse oximetry Heart rate Body temperature Body weight Systolic And Diastolic Provider Name and Address Organization Details Last Updated DateTime 07/22/202 2 49.3 kg/m2 162.56 cm 99 % 99 % 97 /min 98.1 [degF] 933954. 01 g 124/80 mm[Hg] Not Available [facility] 3 01:06:38 Date Recorded Body height Body mass index (BMI) Body weight Respiratory rate Provider Name and Address Organization Details Last Updated DateTime 03/01/2023 162.56 cm 40 kg/m2 740021.74 g 99 /min Claudia RUBIN [facility] [employer] [facility] 03/01/2023 15:56:35 Date Recorded Body mass index (BMI) Body height Oxygen saturation Oxygen saturation in Arterial blood by Pulse oximetry Heart rate Body temperature Body weight Systolic And Diastolic Provider Name and Address Organization Details Last Updated DateTime 2 46.3 kg/m2 162.56 cm 98 % 98 % 87 /min 97.6 [degF] 469085. 94 g 125/85 mm[Hg] Not Available [facility] 3 01:06:38 Social History Question Answer Notes LastModified by [employer] Details LastModified Time Tobacco Smoking Status Never Smoker Not Available [facility] 09/20/2022 01:06:04 Has Tobacco Cessation Counseling Been Provided? No [id number] Information not available 09/20/2022 Sex: Unknown Functional Status Question Answer Note LastModified by [employer] Details LastModified Time Do you or have you ever used any other forms of tobacco or nicotine? No [id number] Information not available 09/20/2022 What is your level of alcohol consumption? None [id number] Information not available 09/20/2022 Mental Status None recorded. Family History Relationship Description Onset Age of this Age Resolved Age Notes LastModified by Organization Details LastModified Time Father No current problems or disability [id number] Not available 09/20/2022 01:06:33 Father History of hypertension [id number] Not available 09/20/2022 01:06:33 Mother No current problems or disability [id number] Not available 09/20/2022 01:06:33 Medical History Condition Response BLINDNESS N RHEUMATIC FEVER N MRSA N INFECTIOUS DISEASE N LUNG DISEASE/DISORDER N HEART ARRHYTHMIA N HISTORY OF DRUG ABUSE N INSOMNIA N RADIATION / CHEMOTHERAPY N COPD N HIGH CHOLESTEROL / HYPERLIPIDEMIA Y HYPERTHYROIDISM N EYE PROBLEMS N BLOOD DISEASES N SURGERY N EDEMA N HYPOTHYROIDISM N SHINGLES N DEPRESSION (INCLUDING POST ) N HAVE YOU BEEN HOSPITALIZED OR SEEN IN [facility] IN THE PAST YEAR ? N STROKE/TIA N THYROID DISEASE N BENIGN PROSTATIC HYPERPLASIA N OBESITY N GERD/NAUSEA N EXCESSIVE PERSPIRATION N ANEURYSM N OSTEOPOROSIS N ARTHRITIS N USE OF BLOOD THINNERS N NO SIGNIFICANT PAST MEDICAL HISTORY N SKIN PROBLEMS N DIABETES, TYPE N PARATHYROID DISEASE N BLOOD CLOTS N HEPATITIS / LIVER DISEASE N GOUT N ALZHEIMER'S DISEASE N HERPES N RETINOPATHY N SEIZURES/EPILEPSY N HEADACHES/MIGRAINES N GI PROBLEMS N Low Testosterone N DIZZINESS N AIDS/HIV N KIDNEY DISEASE N HEART DISEASE/HEART PROBLEMS N LIVER DISEASE N HYPERTENSION N CANCER: SPECIFY N TOURETTE'S N BLOOD TRANSFUSION N ANEMIA/BLOOD DISORDER N ATRIAL FIBRILLATION N AUTOIMMUNE DISEASE N TUBERCULOSIS N GLAUCOMA N Gynecological HistoryNo gynecological history recorded. Obstetrics History GPAL:G 0 P 0 0 0 0 Past Encounters Encounter ID Performer Location Encounter Start Date Encounter Closed Date Diagnosis/Indication Diagnosis SNOMED-CT Code Diagnosis ICD10 Code Diagnosis IMO Codes Diagnosis Note [id number] Neelam Pettit MD [facility] [address] [place] [id number] 02/09/2022 00:00:00 02/09/2022 17:51:09 [id number] [facility] [address] [place] [address] 04/23/2022 00:00:00 04/23/2022 18:23:03 [id number] Neelam Pettit MD [facility] [address] [place] [id number] 03/01/2023 15:39:22 03/01/2023 16:41:42 Health Concerns Section Related Observation LastModified by Organization Detai ls LastModified Time None Recorded Concern Status LastModified by Organization Details LastModified Time None Recorded Advance Directives Directive None Recorded Payers Insurance Date Sequence Insurance Name Policy Number Policy Gómez Covered Member ID Gómez Member ID Guarantor Name 02/26/2023 1 [facility] [employer] [facility] [employer]NAGEMENT (PPO) Stefania Godoy [id number] Stefania Godoy Notes Date Note Type Note Provider Name and Address Organization Details Recorded Time 03/01/2023 text/html no labs , no charge for visit Neelam Pettit MD [address] [address], [place], [address], [facility] 03/01/2023 16:41:41 OBGyn Episode No OBEpisode recorded.
--- OUTSIDE RECORDS SUMMARY | 2025-04-17 08:53 | XMS_ITS | Clinical Summary ---
Author Organization [facility] [employer] [place] Address [address] [place] [address] [place] [address] Care Team Providers Care Commander Internal Affairs Name Role Phone Ramón Penny MD Primary Care Provider [phone] Allergies No known active allergies Medications traZODone [...] obesity with body mass index of 40.0-49.9 Take 15 mL by mouth every 6 [...] STL ABSTRACTION Provider, Abstract 01/28/2025 Results Follow-Up [facility] at [place] [address] [place] [address] Tonya Murillo MD TSH, LIPID PANEL, COMPREHENSIVE METABOLIC PANEL, CBC WITH DIFFERENTIAL 01/27/2025 7:40 AM CDT Office Visit [facility] at [place] [address] [place] [address] Screening for condition (Primary Dx) from Last [...] = 0.6 oz pur e alcohol) occasionally Feeling Safe Answer Date Recorded Are you in a relationship wi th someone who hurts you emotionally and/or physically? No 11/14/2023 Food Insecurity Answer Date Recorded Social/Environmental Concerns No concerns Transportation Needs Answer Date Record ed Social/Environmental Concerns No concerns Housing Stability Answer Date Recorded Social/Environmental Concerns No concerns Utility Needs Answer Date Recorded Social/Environmental Concerns No concerns Comments No Sex and Gender Information Value [...] (#1) 2025 Medical Devices Implanted Type Area Field Hand Device Identifier Shelf Expiration Date Model / Serial / Lot Seamguard Endogia 60 Blk [id number] - [id number] Implanted:Qt y: 1 on 11/14/2023 by Javier Moreau MD at [facility] Biological N/A: [employer] [id number] 04/02/2026 12BSGTRI 60B / / [id number] Seamguard Endogia 60 Blk [id number] - [id number] Implanted:Qt y: 1 on 11/14/2023 by Javier Moreau MD at [facility] [employer] N/A: [employer] [id number] 04/02/2026 12BSGTRI 60B / / [id number] Seamguard Endogia 60 Prpl [id number] - [id number] Implanted:Qt y: 1 on 11/14/2023 by Javier Moreau MD at [facility] Biological N/A: [employer] [id number] 05/18/2026 12BSGTRI 60P / / [id number] Seamguard Endogia 60 Prpl [id number] - [id number] Implanted:Qt y: 1 on 11/14/2023 by Javier Moreau MD at [facility] Biological N/A: [employer] [id number] 05/18/2026 12BSGTRI 60P / / [id number] Procedures Procedure Name Priority Date/Time Associated Diagnosis [...] 319 200 - 950 cells/uL [facility] EOSINOPHIL ABSOLUTE 151 15 - 500 cells/uL [facility] BASOPHILS ABSOLUTE 39 0 - 200 cells/uL [facility] NEUTROPHIL 46.1 % [facility] LYMPHOCYTES 44.8 % [facility] MONOCYTE 5.7 % [facility] EOSINOPHILS 2.7 % [facility] BASOPHILS 0.7 % [facility] Comment: Test Performed at: [facility] [address] [place] [address] [facility] Blood 01/27/2025 7:20 AM CDT 01/28/2025 3:41 AM CDT Tonya Murillo MD HEMATOLOGY ORDERABLES Final R esult [facility] [phone] [facility] [place] [address] [place] [address] * TSH (01/27/2025 7:20 AM CDT) TSH 2.24 mIU/L [facility] Comment: Reference Range > or = 20 Years 0.40-4.50 Ranges First trimester 0.26-2.66 Second trimester 0.55-2.73 Third trimester 0.43-2.91 Test Performed at: [facility] [address] [place] [address] [facility] Blood 01/27/2025 7:20 AM CDT 01/28/2025 3:41 AM CDT Tonya Murillo MD CHEMISTRY ORDERABLES Final Re sult Performing Organization Address City/[facility]/ZIP Code Phone Number [facility] [phone] [place] [address] [address] [place] [phone] * (ABNORMAL) LIPID PANEL (01/27/2025 7:20 AM CDT) CHOLESTEROL 215(H) <200 mg/dL [facility] HDL 61 > OR = 50 mg/dL [email or web address] TRIGLYCERIDE 88 <150 mg/dL [facility] LDL CALCULATED 135(H) mg/dL (calc) [email or web address] Comment: Reference range: <100 Desirable range <100 mg/dL for primary prevention; <70 mg/dL for patients with CHD or diabetic patients with > or = 2 CHD risk factors. LDL-C is now calculated using the Rafael calculation, which is a validated novel method providing better accuracy than the Friedewald equation in the estimation of LDL-C. Miky KENNY et al. ELIANA. 2013;310(19): 0657-2151 (http://education.Mediasurface/faq/SNC452) CHOL/HDL RATIO 3.5 <5.0 (calc) [facility] NON-HDL CHOLESTEROL 154(H) <130 mg/dL (calc) [email or web address] Comment: For patients with diabetes plus 1 major ASCVD risk factor, treating to a non-HDL-C goal of <100 mg/dL (LDL-C of <70 mg/dL) is considered a therapeutic option. Test Performed at: [facility] [address] [address] [place] [phone] [facility] Blood 01/27/2025 7:20 AM CDT 01/28/2025 3:41 AM CDT Tonya Murillo MD CHEMISTRY ORDERABLES Final Re sult [facility] [phone] [place] [address] [address] [place] [phone] * COMPREHENSIVE METABOLIC PANEL (01/27/2025 7:20 AM CDT) GLUCOSE 80 65 - 99 mg/dL [facility] Comment: Fasting reference interval BUN 16 7 - 25 mg/dL [facility] CREATININE 0.88 0.50 - 0.97 mg/dL [facility] GFR 90 > OR = 60 mL/min/1. 73m2 [facility] BUN/CREAT RATIO SEE NOTE: 6 - 22 (calc) [facility] Comment: Not Reported: BUN and Creatinine are within reference range. SODIUM 139 135 - 146 mmol/L [facility] Pool POTASSIUM 4.1 3.5 - 5.3 mmol/L [facility] CHLORIDE 102 98 - 110 mmol/L [facility] CO2 26 20 - 32 mmol/L [facility] CALCIUM 9.5 8.6 - 10.2 mg/dL [facility] Pool TOTAL PROTEIN 7.2 6.1 - 8.1 g/dL [facility] Pool ALBUMIN 4.2 3.6 - 5.1 g/dL [facility] GLOBULIN 3.0 1.9 - 3.7 g/dL (calc) [facility] Pool ALBUMIN/GLOBULIN RATIO 1.4 1.0 - 2.5 (calc) [facility] BILIRUBIN TOTAL 0.5 0.2 - 1.2 mg/dL [facility] Pool ALKALINE PHOSPHATASE 66 31 - 125 U/L [facility] Pool AST 15 10 - 30 U/L [facility] Pool ALT 20 6 - 29 U/L [facility] Comment: Test Performed at: [facility] [address] [address] [place] [phone] [facility] Blood 01/27/2025 7:20 AM CDT 01/28/2025 3:41 AM CDT us Tonya Murillo MD CHEMISTRY ORDERABLES Final Re sult [facility] [phone] [place] [address] [address] [place] [phone] from Last 3 Months Insurance [employer] OPEN ACCESS RX [employer] PL[employer] (INTERNAL) [facility] [employer] * Guarantor: [employer]) Account Type Relation to Patient Date of Phone Billing Address Corporate Employer ATTN: ABRIL RUBIO [address] [address] [employer] OPEN ACCESS * Guarantor: [employer] Account Type Relation to Patient Date of Phone Billing Address Corporate Employer ATTN: ABRIL RUBIO [address] [address] Advance Directives For more information, please contact: [phone] * Full Code (Latest Code Status on File) Date Activated Date Inactivated Comments 11/14/2023 6:58 AM 11/15/2023 4:54 PM * Full Code Date Activated Date Inactivated Comments 11/14/2023 5:40 AM 11/14/2023 6:58 AM Care Teams Commander Internal Affairs Relationship Specialty Start Date End Date Ramón Penny MD [address] [facility] [place] [address] PCP - General Family Practice 01/04/22
--- OUTSIDE RECORDS SUMMARY | 2025-04-17 08:53 | XMS_ITS | Encounter Summary ---
Author Organization [facility] Address [address] [place] [address] Care Team Providers Care Aircraft Log Clerk Name Role Phone Ramón Penny MD Primary Care Provider [phone] Encounter Details Date Type Department Care Team (Late st Contact Info) Description 10/08/2023 Abstract [facility] Operating Room [address] [phone] Jaiver Moreau MD [address] [address] Social History Tobacco Use Types Packs/Day Years [...] on filedocumented in this encounter Care Teams Aircraft Log Clerk Relationship Specialty Start Date End Date Ramón Penny MD [address] [place] [phone] PCP - General Family Practice 01/04/22 documented as of this encounter
[2025-04-17 08:54] VITALS: BP 115/74; PULSE 92; RESP 20; TEMP 36.4; O2SAT 100
--- OUTSIDE RECORDS SUMMARY | 2025-04-17 08:54 | XMS_ITS | Clinical Summary ---
Author Organization [address] Address [address] [place] [address] Care Team Providers Care Last Sawyer Name Role Phone Ramón Penny MD Primary Care Provider [phone] Allergies No known active allergies Medications spironolactone [...] on file Legal Sex Female 8:16 AM AUDIT CONSULTANT Gender Identity Not on file Sexual Orientation Not on file Obstetrics History Last Filed Vital Signs Vital Sign Reading Time Taken Comments Blood Pressure 126/81 08/26/2023 9:41 AM AUDIT CONSULTANT Pulse 86 08/26/2023 9:41 AM AUDIT CONSULTANT Temperature 36.9 C (98.4 F) 08/26/2023 9:41 AM AUDIT CONSULTANT Respiratory Rate 17 03/15/2023 2:30 PM CDT Oxygen Saturation 98% 08/26/2023 9:41 AM AUDIT CONSULTANT Inhaled Oxygen Concentration - - Weight 111.1 kg (245 lb) 08/26/2023 9:41 AM AUDIT CONSULTANT Height 162.6 cm (5' 4) 08/26/2023 9:41 AM AUDIT CONSULTANT Body Mass Index 42.05 08/26/2023 9:41 AM AUDIT CONSULTANT Plan of Treatment Health Maintenance Due Date Last Done Comments Cervical Cancer Screening 1993 Depression Screening 1993 Hepatitis C Screening 1993 Regular Well Visit/Exam 18-64 2011 DTaP/Tdap/Td Vaccine (8 - Td or Tdap) 01/13/2017 01/13/2007, 07/22/2006, 08/21/2004, Additional history exists Covid-19 Vaccine ( season) 2025 11/14/2020, 10/17/2020 Influenza Vaccine (#1) 2025 Hepatitis B Screening Completed 1993 , 1993, 1993 Varicella Vaccines Completed 01/13/2007, 05/24/1995 HPV Vaccines Completed 07/05/2008, 02/19, 01/02/2008, Additional history exists Pneumococcal vaccine <65 Aged Out No longer eligible based on patient's age to complete this topic Insurance [facility]CIAL GENERIC FORMERLY [facility] [place] [address] [employer] [place] Advance Directives For more information, please contact: [phone] * Full Code (Latest Code Status on File) Date Activated Date Inactivated Comments 03/15/2023 12:53 PM 03/15/2023 7:01 PM Care Teams Last Sawyer Relationship Specialty Start Date End Date Ramón Penny MD PCP - General 05/15/11
--- NOTE | 2025-04-17 09:02 | ED_ITS ---
HPI - URI/Sore Throat General Chief Complaint: Upper Respiratory Infection Stated Complaint: chest congestion/sore throat Time Seen by Provider: 04/17/25 09:02 Source: patient Mode of arrival: ambulatory Limitations: no limitations History of Present Illness HPI Narrative: 29 y/o female presented for c/o nasal congestion, cough, sore throat. Onset one week. Cough is frequent and nonproductive. Endorses the chest feels tight while coughing. Denies sob, wheezing, n/v/d/f/c. Taking Sudafed, mucinex and Tylenol. Related Data Home Medications ?Medication ?Instructions ?Recorded ?Confirmed ?Last Taken ?Type mecobalamin (vitamin B12) 500 mcg mcg PO 10/19/24/11/13 Unknown History chewable tablet dzgzeena-qatvjmpg-lyii 45 mg-folic cap PO 10/19/2411/13 Unknown History acid 800 mcg-vit K 120 mcg capsule (Bariatric Multivitamins) omeprazole 20 mg capsule,delayed 20 mg PO DAILY 02/22/25 Unknown Hist ory release Allergies Allergy/AdvReac Type Severity Reaction Status Date / Time No Known Allergies Allergy Verified 04/17/25 08:55 Review of Systems Review of Systems: CONSTITUTIONAL: Denies body aches, fever, chills, or sweats. EYES: Denies visual changes, redness, or discharge. ENT: reports rhinorrhea, congestion, sore throat, Denies otalgia. CARDIOVASCULAR: Denies chest pain, palpitations, or edema. RESPIRATORY: Reports cough, denies sob, wheezing. GASTROINTESTINAL: Denies abdominal pain, nausea, vomiting, or diarrhea. NEUROLOGIC: Denies headache, numbness, tingling, or weakness. All systems reviewed & are unremarkable except as noted in HPI and below PMFSH Past Medical History Medical History BMI 39.0-39.9,adult BMI greater than 40 Cholecystectomy planned Morbid (severe) obesity due to excess calories Dietary counseling and surveillance (07/11/15) Acute bacterial sinusitis Surgical History Surgical History H/O endoscopy History of wisdom tooth extraction Family History Family History Father Family history of elevated blood lipids Hypertension Grandparent Family history of lymphoma Family history of heart disease in male family member before age 55 Acute myocardial infarction Mother No problems noted. 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 Please see nursing chart for further information. There is no relevant family history pertinent to the presenting complaint Exam Narrative: GENERAL: mildly ill-appearing, in no acute distress. EYES: EOMI. No redness or drainage. Conjunctivae normal. ENT: Mucous membranes pink and moist. Mild rhinorrhea. TMs normal bilaterally. Throat normal. Uvula midline. NECK: Normal AROM. Supple. CHEST: No respiratory distress. Lungs clear to all diop. Frequent moist actuarial consultant cough. HEART: Regular rate and rhythm. No murmur appreciated. SKIN: Warm, dry, no rash. Capillary refill normal. Normal skin turgor. NEURO: Alert and oriented x3. Gait steady. PSYCH: Normal affect. Course Course Emergency Course: Patient is aware of diagnosis, understands and agrees to treatment plan. A nticipatory guidance given. Patient agrees to follow-up as directed and is aware of reasons to seek care at the emergency department. Portions of this record may have been created with voice recognition software Level of Care: Express Care Visit Vital Signs Vital signs: Vital Signs Temperature 97.5 F L 04/17/25 08:54 Pulse Rate 92 04/17/25 08:54 Respiratory Rate 20 04/17/25 08:54 Blood Pressure 115/74 04/17/25 08:54 Pulse Oximetry 100 04/17/25 08:54 Oxygen Delivery Room Air 04/17/25 08:54 Temperature 97.5 F L 04/17/25 08:54 Pulse Rate 92 04/17/25 08:54 Respiratory Rate 20 04/17/25 08:54 Blood Pressure 115/74 04/17/25 08:54 Pulse Oximetry 100 04/17/25 08:54 Oxygen Delivery Room Air 04/17/25 08:54 MDM - URI/Sore Throat MDM Narrative Medical decision making narrative: Discussed physical exam findings Was consistent with bronchitis, given the onset of 1 week will send abx along with steroid, v/u. Advised supportive measures and signs/symptoms to go to the ER. Pt is appropriate for outpt treatment and f/u. Differential Diagnosis Differential diagnosis: Likely upper respiratory infection, sinusitis, viral infection, bronchitis, pharyngitis and other (Angioedema, perforation, asthma, pneumonia, PE, tension pneumothorax, cardiac tamponade DE, pericarditis, pleural effusion, CHF, bronchitis, cardiac arrhythmia) Discharge Plan Discharge Clinical Impression: Bronchitis Patient Disposition: Home Condition: Stable Instructions: Antibiotic Form, Acute Bronchitis (ED) Additional Instructions: Take medication as directed Recommendations: Flonase spray and Zyrtec (or Claritin/Juliana) over the counter Cough syrup may cause drowsiness; avoid driving or take it at night time. Tylenol every 8 hours as needed for pain Symptomatic treatment includes: rest, fluids, and increase humidity of the air at home. Follow up with your primary care provider as needed in 1 week Go to the ER for worsening symptoms or concerns Patient Language: Setswana Prescriptions: New benzonatate 200 mg capsule 200 mg PO TID PRN (Reason: cough) Qty: 20 0RF methylprednisolone [Medrol (Kerwin)] 4 mg tablets,dose pack See Rx Instructions .ROUTE .COMPLEX Qty: 21 0RF Rx Instructions: orally per package directions amoxicillin-pot clavulanate 875-125 mg tablet 1 tablet PO Q12H 7 Days Qty: 14 0RF No Action mecobalamin (vitamin B12) 500 mcg tablet,chewable PO omeprazole 20 mg capsule,delayed release(DR/EC) 20 mg PO DAILY Bariatric Multivitamins 45 mg iron- 800 mcg-120 mcg capsule PO Wegovy 0.25 mg/0.5 mL pen injector 0.25 mg subcut WEEKLY Qty: 2 3RF Rx Instructions: administer weeks 1 through 4 of therapy trazodone 50 mg tablet See Rx Instructions .ROUTE .COMPLEX Qty: 90 0RF Dose Instruction: TAKE 1 TABLET BY MOUTH EVERYDAY AT BEDTIME Rx Instructions: TAKE 1 TABLET BY MOUTH EVERYDAY AT BEDTIME Follow-up/Referrals: Ramón Penny MD [Primary Care Provider, [facility]] Time of Disposition: 09:11
== END 2025-04-17 09:10 | disposition home or self-care (01) ==
PROVIDERS: Emergency Provider Nurse Practitioner Family; PCP Family Medicine
DX: J40 Bronchitis, not specified as acute or chronic (principal); E66.01 Morbid (severe) obesity due to excess calories; Z68.29 Body mass index [BMI] 29.0-29.9, adult
CPT/HCPCS: 99213; G0463

== ENCOUNTER 2025-05-12 12:25 | Emergency (ER) | payer OTHER, SELFPAY ==
[2025-05-12 12:35] VITALS: BP 110/77; PULSE 104; RESP 16; TEMP 36.7; O2SAT 98
--- NOTE | 2025-05-12 12:54 | ED.FEMALEGU ---
HPI - Female Genitourinary General Chief complaint: Urogenital-Female Stated complaint: UTI SYMPTOMS Time Seen by Provider: 05/12/25 12:54 Source: patient Mode of arrival: ambulatory Limitations: no limitations History of Present Illness HPI Narrative: 30 yo F presents with c/o urinary frequency, urgency, pressure for about 1 wk. Took OTC Uqora without relief of symptoms. Afebrile. No flank pain. All systems reviewed and negative except as noted above. Related Data Home Medications ?Medication ?Instructions ?Recorded ?Confirmed ?Last Taken ?Type mecobalamin (vitamin B12) 500 mcg mcg PO 10/19/24 02/22/25 Unknown History chewable tablet zxmedtle-puxjrqyk-alkv 45 mg-folic cap PO 10/19/24 02/22/25 Unknown History acid 800 mcg-vit K 120 mcg capsule (Bariatric Multivitamins) omeprazole 20 mg capsule,delayed 20 mg PO DAILY 10/19/24 02/22/25 Unknown History release Allergies Allergy/AdvReac Type Severity Reaction Status Date / Time No Known Allergies Allergy Verified 05/12/25 12:40 [facility] Past Medical History Medical History BMI 39.0-39.9,adult BMI greater than 40 Cholecystectomy planned Morbid (severe) obesity due to excess calories Dietary counseling and surveillance (07/11/15) Acute bacterial sinusitis Surgical History Surgical History H/O endoscopy History of wisdom tooth extraction Family History Family History Father Family history of elevated blood lipids Hypertension Grandparent Family history of lymphoma Family history of heart disease in male family member before age 55 Acute myocardial infarction Mother No problems noted. 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 There is no relevant family history pertinent to the presenting complaint. Exam Narrative: GENERAL: This is a well-nourished, well-developed patient, in no apparent distress. HEAD: normocephalic, atraumatic. EYES: PERRL. Sclera clear/white. Vision is grossly intact. EARS: External ears normal NOSE: External nose normal NECK: Neck supple, non-tender without lymphadenopathy, masses or thyromegaly. CARDIOVASCULAR: Regular rate and rhythm without murmurs, gallops, or rubs. RESPIRATORY: Clear to auscultation. Breath sounds equal bilaterally. No wheezes, rales, or rhonchi. SKIN: warm, Dry, intact with no suspicious lesions or rash, good texture and turgor. NEURO: awake, alert, and oriented to person, place and time. There were no obvious focal neurologic abnormalities. EXTREMITIES: No joint tenderness, effusion, or edema noted. Course Course Level of Care: Express Care Visit Vital Signs Vital signs: Vital Signs Temperature 36.7 C 05/12/25 12:35 Pulse Rate 104 H 05/12/25 12:35 Respiratory Rate 16 05/12/25 12:35 Blood Pressure 110/77 05/12/25 12:35 Pulse Oximetry 98 05/12/25 12:35 Temperature 36.7 C 05/12/25 12:35 Pulse Rate 104 H 05/12/25 12:35 Respiratory Rate 16 05/12/25 12:35 Blood Pressure 110/77 05/12/25 12:35 Pulse Oximetry 98 05/12/25 12:35 Reviewed MDM - Female Genitourinary MDM Narrative Medical decision making narrative: Urinalysis 2+ leukocytes, trace blood. Will treat patient with antibiotic due to urinary symptoms. Urine culture ordered. Patient is well-appearing, nontoxic. Differential Diagnosis Differential diagnosis: Likely urinary tract infection Discharge Plan Discharge Clinical Impression: Urinary tract infection Patient Disposition: Home Condition: Stable Instructions: Antibiotic Form, Urinary Tract Infection in Women (ED) Additional Instructions: Take antibiotic as prescribed until gone. Drink at least 64 oz water a day. See your primary care physician if symptoms are not improving. If you have severe pain, vomiting, fever go to the ER. Patient Language: Italian Prescriptions: New amoxicillin-pot clavulanate [Augmentin] 500-125 mg tablet 1 tablet PO BID 5 Days Qty: 10 0RF No Action mecobalamin (vitamin B12) 500 mcg tablet,chewable PO omeprazole 20 mg capsule,delayed release(DR/EC) 20 mg PO DAILY Bariatric Multivitamins 45 mg iron- 800 mcg-120 mcg capsule PO trazodone 50 mg tablet See Rx Instructions .ROUTE .COMPLEX Qty: 90 0RF Dose Instruction: TAKE 1 TABLET BY MOUTH EVERYDAY AT BEDTIME Rx Instructions: TAKE 1 TABLET BY MOUTH EVERYDAY AT BEDTIME Wegovy 0.5 mg/0.5 mL pen injector 0.5 mg subcut WEEKLY Qty: 2 2RF Rx Instructions: administer weeks 5 through 8 of therapy Follow-up/Referrals: Ramón Penny MD [Primary Care Provider, [facility]] Time of Disposition: 13:02
[2025-05-12 13:07] LABS: BEDSIDEPREGUCG Negative (Negative); EDUAAPPEAR Clear; EDUABILI Negative (Negative); EDUABLOOD Trace (Negative); EDUACOLOR1 Yellow; EDUAGLUCOSE Negative (Negative); EDUAKETONE Negative (Negative); EDUALEUKO 2+ (Negative); EDUANITRATE Negative (Negative); EDUAPH 6.5; EDUAPROTEIN Negative (Negative); EDUASPGRAVITY 1.020; EDUAUROBILI 0.2
== END 2025-05-12 13:07 | disposition home or self-care (01) ==
PROVIDERS: Emergency Provider Nurse Practitioner Family; PCP Family Medicine
DX: N39.0 Urinary tract infection, site not specified (principal); E66.01 Morbid (severe) obesity due to excess calories; Z68.29 Body mass index [BMI] 29.0-29.9, adult
CPT/HCPCS: 81003; 81025; 87086; 99213; G0463